=== PATIENT | male | born 1955 | race Caucasian/White ===

== ENCOUNTER 2017-05-12 14:20 | Emergency (ER) | payer OTHER ==
--- NOTE | 2017-05-12 15:18 | EDPHY ---
H & P Time Seen by Provider: 05/12/17 14:56 HPI/ROS: Chief complaint. Abdominal pain HPI. 61-year-old male presents emergency department with low abdominal pain that began last night. It is really in the midline between the pubic symphysis and is umbilicus. No radiation through to his back. Pain is intermittent. Better after bowel movement. He has had smaller, more frequent bowel movements today. No urinary symptoms. No flank pain. No nausea vomiting or fever. No chest pain or shortness of breath. No similar symptoms previously ROS Constitutional. no fever/chills, no weakness Eyes. no problems with vision ENT. no sore throat, no nasal drainage Cardiovascular. no chest pain Respiratory. no shortness of breath, no cough Abdominal. Low mid abdominal pain and more frequent bowel movements . no problems urinating MS. no calf pain/swelling, no neck/back pain, no joint pain Skin. no rash Lymph. no swollen glands Neuro. no headache, no dizziness, no difficulty walking or with speech Past Medical/Surgical History: Denies past medical history Social History: , nonsmoker, no alcohol Smoking Status: Former smoker Physical Exam: General Appearance: Alert well-developed male mild distress vital signs are stable Eyes: Pupils equal and round no pallor or injection. ENT, Mouth: Mucous membranes are moist. Respiratory: There are no retractions, lungs are clear to auscultation. Cardiovascular: Regular rate and rhythm. Gastrointestinal: Abdomen is soft with mild tenderness to the suprapubic area as well as slightly laterally toward the left lower quadrant. Normal bowel sounds. No masses. Neurological: Awake and alert, sensory and motor exams grossly normal. Skin: Warm and dry, no rashes. Musculoskeletal: Neck is supple nontender. Extremities symmetrical, full range of motion. Psychiatric: Patient is oriented X 3, there is no agitation. Constitutional: Initial Vital Signs Temperature (C) 36.8 C 05/12/17 14:23 Heart Rate 72 05/12/17 14:23 Respiratory Rate 18 05/12/17 14:23 Blood Pressure 139/86 H 05/12/17 14:23 O2 Sat (%) 94 05/12/17 14:23 O2 Delivery Mode Room Air Allergies/Adverse Reactions: No Known Allergies Allergy (Unverified 05/12/17 14:23) Home Medications: Medication Instructions Recorded Ciprofloxacin [Cipro] 500 mg PO BID #14 tab 01/27/18 metroNIDAZOLE [Flagyl 500 mg (*)] 500 mg PO QID #28 tab 05/12/17 oxyCODONE/APAP 5/325 [Percocet 1 tab PO Q4-6PRN PRN #10 tab 05/12/17 5/325] Medical Decision Making - Diagnostics Imaging Results: Imaging Impressions Abdomen CT 05/12/17 15:26 Impression: 1. Moderate diverticulitis mid sigmoid colon positioned at the midline above the bladder without associated complications. Findings discussed with Brian Ahmadi M.D. at 16:55 hour, 05/12/2017. CT abdomen and pelvis with IV contrast shows moderate diverticulitis in the mid sigmoid colon. No evidence of perforation or abscess. Reviewed by me and discussed with Dr. Berrios Procedures: IV normal saline ED Course/Re-evaluation: Re-evaluation at 5:10 p.m.. Patient is stable. The patient, his , and I discussed imaging study results. We discussed treatment plan including criteria for return importance of follow-up further evaluation. He expresses understanding and agreement Differential Diagnosis: I considered kidney stone, pyelonephritis and urinary tract infection, diverticulitis - Data Points Laboratory Results: Laboratory Results 05/12/17 15:00 05/12/17 15:00 05/12/17 05/12/17 05/12/17 16:03 15:00 15:00 WBC 7.36 10^3/uL 10^3/uL (3.80-9.50) RBC 4.47 10^6/uL 10^6/uL (4.40-6.38) Hgb 15.1 g/dL g/dL (13.7-17.5) Hct 43.6 % % (40.0-51.0) MCV 97.5 fL fL (81.5-99.8) MCH 33.8 pg pg (27.9-34.1) MCHC 34.6 g/dL g/dL (32.4-36.7) RDW 13.6 % % (11.5-15.2) Plt Count 133 10^3/uL L 10^3/uL (150-400) MPV 11.1 fL fL (8.7-11.7) Neut % (Auto) 70.5 % % (39.3-74.2) Lymph % (Auto) 16.2 % % (15.0-45.0) [place] % (Auto) 10.6 % % (4.5-13.0) Eos % (Auto) 2.0 % % (0.6-7.6) Baso % (Auto) 0.4 % % (0.3-1.7) Nucleat RBC Rel Count 0.0 % % (0.0-0.2) Absolute Neuts (auto) 5.19 10^3/uL 10^3/uL (1.70-6.50) Absolute Lymphs (auto) 1.19 10^3/uL 10^3/uL (1.00-3.00) Absolute Monos (auto) 0.78 10^3/uL 10^3/uL (0.30-0.80) Absolute Eos (auto) 0.15 10^3/uL 10^3/uL (0.03-0.40) Absolute Basos (auto) 0.03 10^3/uL 10^3/uL (0.02-0.10) Absolute Nucleated RBC 0.00 10^3/uL 10^3/uL (0-0.01) Immature Gran % 0.3 % % (0.0-1.1) Immature Gran # 0.02 10^3/uL 10^3/uL (0.00-0.10) Sodium 140 mEq/L mEq/L (135-145) Potassium 4.1 mEq/L mEq/L (3.5-5.2) Chloride 104 mEq/L mEq/L (97-110) Carbon Dioxide 24 mEq/l mEq/l (22-31) Anion Gap 12 mEq/L mEq/L (8-16) BUN 13 mg/dL mg/dL (7-23) Creatinine 0.9 mg/dL mg/dL (0.7-1.3) Estimated GFR > 60 Glucose 101 mg/dL H mg/dL (70-100) Calcium 9.6 mg/dL mg/dL (8.5-10.4) Urine Color PALE YELLOW Urine Appearance CLEAR Urine pH 6.0 (5.0-7.5) Ur Specific [place] 1.008 (1.002-1.030) Urine Protein NEGATIVE (NEGATIVE) Urine Ketones NEGATIVE (NEGATIVE) Urine Blood NEGATIVE (NEGATIVE) Urine Nitrate NEGATIVE (NEGATIVE) Urine Bilirubin NEGATIVE (NEGATIVE) Urine Urobilinogen NEGATIVE EU EU (0.2-1.0) Ur Leukocyte Esterase NEGATIVE (NEGATIVE) Urine RBC NONE SEEN /hpf /hpf (0-3) Urine WBC NONE SEEN /hpf /hpf (0-3) Ur Epithelial Cells NONE SEEN /lpf /lpf (NONE-1+) Urine Mucus TRACE /lpf /lpf (NONE-1+) Urine Glucose NEGATIVE (NEGATIVE) Medications Given: Discontinued Medications Sodium Chloride (Ns) 1,000 mls @ 0 mls/hr IV EDNOW ONE; Wide Open PRN Reason: Protocol Stop: 05/12/17 15:27 Last Admin: 05/12/17 15:47 Dose: 1,000 mls Departure - Departure Disposition: Home, Routine, Self-Care Clinical Impression: Diverticulitis Condition: Good Instructions: Diverticulitis (ED), Diverticulitis Diet (ED) Additional Instructions: Drink plenty of fluids and stay hydrated. Diverticulitis diet that we are providing information on. Cipro twice daily for 1 week. Flagyl every 6 hr for 1 week. Avoid alcohol while taking Flagyl. Return for worsening pain, fever, vomiting, blood in stool. Recheck in 2 days if not improving. As you do not have a regular physician I will give you the name of a physician for the follow-up and further evaluation. Referrals: NONE *PRIMARY CARE P,. [Unknown] - As per Instructions Primo Anderson MD [[facility] Primary Care Provider] - 2-3 days, call for appt. Prescriptions: Ciprofloxacin [Cipro] 500 mg PO BID #14 tab metroNIDAZOLE [Flagyl 500 mg (*)] 500 mg PO QID #28 tab oxyCODONE/APAP 5/325 [Percocet 5/325] 1 tab PO Q4-6PRN PRN #10 tab PRN Reason: Pain, Moderate
[2017-05-12] MEDS ORDERED: NS 1,000 ML IV ONE (15:26)
[2017-05-12 15:36] LABS: PLATELET COUNT 133 10^3/uL (150-400)
[2017-05-12 15:50] VITALS: RESP 15
[2017-05-12] MEDS ORDERED: IOPAMIDOL (ISOVUE-300) 100 ML BTL ONE (15:52)
[2017-05-12 17:28] VITALS: BP 124/83; PULSE 71; TEMP 97.7; O2SAT 95
== END 2017-05-12 17:28 | disposition home or self-care (01) ==
PROC: 3E0337Z Introduction of Electrolytic and Water Balance Substance into Peripheral Vein, Percutaneous Approach (ICD-10-PCS; principal; 2017-05-12)
DX: K57.32 Diverticulitis of large intestine without perforation or abscess without bleeding (principal); E86.9 Volume depletion, unspecified; Z87.891 Personal history of nicotine dependence
CPT/HCPCS: Q9967

== ENCOUNTER → 2018-01-07 | Outpatient (CLI) | payer OTHER | LOC: FIMAGING 14:25 | PROVIDERS: ATTEND Orthopaedic Surgery Hand Surgery | DX: M66.821 Spontaneous rupture of other tendons, right upper arm (principal) ==